=== PATIENT | female | born 1995 | race Caucasian/White ===

== ENCOUNTER → 2021-07-13 | Day surgery (SDC) | payer OTHER ==
[~2021-07-13] VITALS: Ht 162.6 cm; Wt 66.7 kg
[~2021-07-13] MED LIST: BUPROPION XL150 MG PO; IBUPROFEN800 MG PO
[2021-07-13 12:55] LABS: HCG (URINE) SCREEN NEGATIVE (NEGATIVE)
== END | disposition home or self-care (01) ==
LOC: FAS 12:23
PROVIDERS: Anesthesiology
DX: S52.571A Other intraarticular fracture of lower end of right radius, initial encounter for closed fracture (principal); Q79.9 Congenital malformation of musculoskeletal system, unspecified
CPT/HCPCS: 73100; 76000; 84703; C1713; C1769; J0690; J1100; J2250; J2405; J2704; J2795; J7120